=== PATIENT | male | born 1985 | race Caucasian/White ===

== ENCOUNTER 2016-07-07 10:17 | Emergency (ER) | payer OTHER ==
[2016-07-07 10:24] VITALS: BP 145/100
[2016-07-07] MEDS ORDERED: IBUPROFEN 800 MG TABLET PO ONE (10:25)
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
== END 2016-07-07 11:19 | disposition home or self-care (01) ==
LOC: ER 10:17
DX: S43.102A Unspecified dislocation of left acromioclavicular joint, initial encounter (principal); V28.4XXA Motorcycle driver injured in noncollision transport accident in traffic accident, initial encounter; Z88.0 Allergy status to penicillin; Z88.3 Allergy status to other anti-infective agents
CPT/HCPCS: 99283

== ENCOUNTER 2017-04-28 12:56 | Emergency (ER) | payer OTHER ==
[2017-04-28 13:05] VITALS: BP 147/85
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
[2017-04-28] MEDS ORDERED: KETOROLAC TROMETHAMINE 60 MG/2 ML SDV IM ONE (14:15)
[2017-04-28] MEDS ORDERED: DEXAMETHASONE SOD PHOS INJ 10 MG/1 ML VIAL IM ONE (14:15)
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
[2017-04-28] MEDS ORDERED: HYDROCODONE/ACETAMINOPHEN 5-325 MG 6 TAB/DSPK PO PRN (15:30)
== END 2017-04-28 15:50 | disposition home or self-care (01) ==
LOC: ER 12:56
DX: S16.1XXA Strain of muscle, fascia and tendon at neck level, initial encounter (principal); S80.01XA Contusion of right knee, initial encounter; S60.211A Contusion of right wrist, initial encounter; M25.531 Pain in right wrist; M54.2 Cervicalgia; V87.7XXA Person injured in collision between other specified motor vehicles (traffic), initial encounter
CPT/HCPCS: 99283; 96372; 73564; 73110; J1885; J1100

== ENCOUNTER 2018-04-12 09:10 | Emergency (ER) | payer OTHER ==
--- NOTE | 2018-04-12 10:05 | ER Document Report ---
ED Fall - General Chief Complaint: Fall Injury Stated Complaint: RIB PAIN Time Seen by Provider: 04/12/18 09:58 Notes: This is a 32-year-old male to the emergency department for evaluation of possible rib fracture. Patient states that he fell approximately 1 week ago. Had pain in the chest but continues to have pain in the right lateral and anterior chest wall. No difficulty breathing. Has been wearing a Timo wrap around his chest as it seems to help. Has taken some ibuprofen this morning. Not requesting pain medication. Wants to make sure that he does not have a collapsed lung or something else. Denies any other injuries. Denies any head trauma, hip pain, arm pain, face pain or any other issues at this time. Denies any abdominal pain. TRAVEL OUTSIDE OF THE [place] IN LAST 30 DAYS: No - HPI Occurred: Last week - Related data Allergies/Adverse Reactions: cefaclor [From Ceclor] Allergy (Verified 04/12/18 10:04) Penicillins Allergy (Verified 04/12/18 10:04) Past Medical History - General Information source: Patient - Social History Smoking Status: Never Smoker Chew tobacco use (# tins/day): Yes Frequency of alcohol use: Rare Drug Abuse: None Family History: Arthritis, CAD, COPD, CVA, DM, Hyperlipidemia, Hypertension. denies: Malignancy, Thyroid Disfunction Patient has suicidal ideation: No Patient has homicidal ideation: No Pulmonary Medical History: Reports: Hx Bronchitis, Hx Pneumonia Renal/ Medical History: Reports: Hx Epididymitis. Denies: Hx Peritoneal Dialysis Past Surgical History: Reports: Hx Tonsillectomy - Immunizations Hx Diphtheria, Pertussis, Tetanus Vaccination: Yes Review of Systems - Review of Systems Constitutional: denies: Fever, Malaise, Weakness EENT: denies: Blurred vision, Throat pain, Difficulty swallowing Cardiovascular: Chest pain. denies: Palpitations, Heart racing, Syncope, Dizziness Respiratory: Hurts to breathe. denies: Cough, Short of breath, Wheezing Gastrointestinal: denies: Abdominal pain, Diarrhea, Nausea, Blood streaked bowels Musculoskeletal: denies: Back pain, Joint pain, Muscle pain, Muscle stiffness, Deformity Skin: denies: Change in color, Dryness, Lesions, Lumps Hematologic/Lymphatic: denies: Anemia, Blood clots, Easy bleeding, Easy bruising Neurological/Psychological: denies: Confusion, Weakness, Numbness Physical Exam - Vital signs Vitals: Temp Pulse Resp BP Pulse Ox 98.1 F 88 16 159/96 H 96 04/12/18 09:15 04/12/18 09:15 04/12/18 09:15 04/12/18 09:15 04/12/18 09:15 Interpretation: Normal - General General appearance: Appears well, Alert - HEENT Head: Normocephalic, Atraumatic Eyes: Normal Pupils: PERRL Neck: Normal - Respiratory Respiratory status: No respiratory distress Chest status: Nontender Breath sounds: Normal Chest palpation: Normal Notes: he does have tenderness to palpation on the right anterior and right lateral chest wall - Cardiovascular Rhythm: Regular Heart sounds: Normal auscultation Murmur: No - Abdominal Inspection: Normal Distension: No distension Bowel sounds: Normal Tenderness: Nontender Organomegaly: No organomegaly - Extremities General upper extremity: Normal inspection, Nontender, Normal color, Normal ROM , Normal temperature General lower extremity: Normal inspection, Nontender, Normal color, Normal ROM , Normal temperature, Normal weight bearing. No: Mirian's sign - Neurological Neuro grossly intact: Yes Cognition: Normal Orientation: AAOx4 Juan Manuel Coma Scale Eye Opening: Spontaneous Juan Manuel Coma Scale Verbal: Oriented Juan Manuel Coma Scale Motor: Obeys Commands Juan Manuel Coma Scale Total: 15 Speech: Normal Motor strength normal: LUE, RUE, LLE, RLE Sensory: Normal Course - Vital Signs Vital signs: Temp Pulse Resp BP Pulse Ox 98.1 F 88 16 159/96 H 96 04/12/18 09:15 04/12/18 09:15 04/12/18 09:15 04/12/18 09:15 04/12/18 09:15 Discharge - Discharge Instructions: Rib Injuries and Fractures ([facility]) Prescriptions: Ibuprofen [Motrin 800 mg Tablet] 800 mg PO Q8H PRN 10 Days #30 tab PRN Reason: For Pain Scale 3-4 Tramadol HCl [Ultram 50 mg Tablet] 50 mg PO Q6H PRN 5 Days #20 tab PRN Reason: For Breakthrough Pain Referrals: [facility] [[facility]] - Follow up as needed
--- NOTE | 2018-04-12 11:23 | RADIOLOGY REPORT (SQ) ---
EXAM DESCRIPTION: RIBS RIGHT W/PA CHEST COMPLETED DATE/TIME: 04/12/2018 11:06 am REASON FOR STUDY: fall, rib and chest pain COMPARISON: None. TECHNIQUE: Frontal view of the chest and additional views of the right ribs acquired. NUMBER OF VIEWS: Three view. LIMITATIONS: None. FINDINGS: FRONTAL CXR: No pneumothorax. No pleural effusion. No atelectasis or infiltrates. RIBS: No displaced rib fractures. No lytic or blastic bony lesions. OTHER: No other significant finding. IMPRESSION: NO PNEUMOTHORAX. NO DISPLACED RIB FRACTURES. COMMENT: SITE OF TRAUMA/COMPLAINT MARKED/STAMP COMPLETED: YES. TECHNICAL DOCUMENTATION: JOB ID: [id number] [employer]- All Rights Reserved Reading location - IP/workstation name: [email or web address]
[2018-04-12 11:51] VITALS: BP 145/85
== END 2018-04-12 11:50 | disposition home or self-care (01) ==
LOC: ER 09:10
DX: S20.211A Contusion of right front wall of thorax, initial encounter (principal); W19.XXXA Unspecified fall, initial encounter; Z88.0 Allergy status to penicillin
CPT/HCPCS: 99283

== ENCOUNTER 2018-07-03 13:33 | Emergency (ER) | payer OTHER ==
[2018-07-03] MEDS ORDERED: TETRACAINE HCL 0.5% OPH SOLN 4 ML OS ONE (15:42)
--- NOTE | 2018-07-03 15:59 | ER Document Report ---
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 Patient states that he always uses protective eyewear when he Wells but whenever he is walking through the shop he does not always wear protective eyewear and is exposed to other people who are welding. Patient states that he went to sleep and woke up this morning with left eye pain, tearing and light sensitivity. Patient denies any foreign body in the eye. Patient denies any use of contact lenses. Patient states that he has had problems like this before with UV exposure. Associated Symptoms: Other - Left eye irritation Exacerbated by: Denies Relieved by: Denies Similar symptoms previously: Yes Recently seen / treated by doctor: No - ROS ROS below otherwise negative: Yes Systems Reviewed and Negative: Yes All other systems reviewed and negative - EENT EENT: REPORTS: Eye problems - GASTROINTESTINAL Gastrointestinal: DENIES: Nausea - DERM Skin Color: Normal Skin Problems: None Past Medical History - General Information source: Patient - Social History Smoking Status: Never Smoker Chew tobacco use (# tins/day): Yes Frequency of alcohol use: Occasional Drug Abuse: None 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 denies: Malignancy, Thyroid Disfunction Pulmonary Medical History: Reports: Hx Bronchitis, Hx Pneumonia Renal/ Medical History: Reports: Hx Epididymitis. Denies: Hx Peritoneal Dialysis Past Surgical History: Reports: Hx Tonsillectomy - Immunizations Hx Diphtheria, Pertussis, Tetanus Vaccination: Yes Vertical Provider Document - CONSTITUTIONAL Agree With Documented VS: Yes Exam Limitations: No Limitations General Appearance: WD/WN, No Apparent Distress - INFECTION CONTROL TRAVEL OUTSIDE OF THE [place] IN LAST 30 DAYS: No - HEENT HEENT: Atraumatic, Normocephalic Notes: Patient with scleral injection and tearing, positive photophobia. No corneal abrasion, ulcer or foreign body or dendrite. No fluorescein uptake to cornea. Patient with shallow abrasion to sclera at the 5 o'clock position. - NECK Neck: Normal Inspection, Supple. negative: Lymphadenopathy-Left, Lymphadenop athy-Right - RESPIRATORY Respiratory: Breath Sounds Normal, No Respiratory Distress - CARDIOVASCULAR Cardiovascular: Regular Rate, Regular Rhythm - BACK Back: Normal Inspection - MUSCULOSKELETAL/EXTREMETIES Musculoskeletal/Extremeties: MIKE RICHARDS - NEURO Level of Consciousness: Awake, Alert, Appropriate Motor/Sensory: No Motor Deficit - DERM Integumentary: Warm, Dry, No Rash Course - Re-evaluation Re-evalutation: 07/03/18 15:55 Patient with what appears to likely be UV keratitis. Patient with incidental scleral abrasion unlikely from rubbing his eyes. Patient encouraged not to rub the eyes and advised that he should wear protective eye wear when he is walking through his place of employment. - Vital Signs Vital signs: Temp Pulse Resp BP Pulse Ox 99.0 F 92 16 156/116 H 99 07/03/18 14:21 07/03/18 14:21 07/03/18 14:21 07/03/18 14:21 07/03/18 14:21 Discharge - Discharge Clinical Impression: UV keratitis Qualifiers: Laterality: left Qualified Code(s): H16.132 - Photokeratitis, left eye Abrasion of sclera of left eye Qualifiers: Encounter type: initial encounter Qualified Code(s): S05.8X2A - Other injuries of left eye and orbit, initial encounter Condition: Stable Disposition: HOME, SELF-CARE Additional Instructions: Return immediately for any new or worsening symptoms Followup with your primary care provider, call tomorrow to make a followup appointment Wear protective eyewear while working or walking through your work environment Follow-up with mandrel maker for recheck, call today to make a follow-up appoi ntment Prescriptions: Erythromycin Base [E-Mycin 0.5% Oph Ointment 3.5 gm] 1 applic LFT_EYE QID #1 tube Hydrocodone/Acetaminophen [[place] 5-325 mg Tablet] 1 tab PO Q6 PRN #10 tablet PRN Reason: Forms: Return to Work Referrals: [facility] [[facility]] - Follow up as needed [facility] [Provider Group] - Follow up tomorrow
[2018-07-03 16:34] VITALS: BP 150/110
== END 2018-07-03 16:34 | disposition home or self-care (01) ==
LOC: ER 13:33
DX: H16.132 Photokeratitis, left eye (principal); S05.8X2A Other injuries of left eye and orbit, initial encounter; X58.XXXA Exposure to other specified factors, initial encounter; Y99.0 Civilian activity done for income or pay
CPT/HCPCS: 99283; J3490

== ENCOUNTER 2019-12-13 21:16 | Emergency (ER) | payer OTHER ==
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
--- NOTE | 2019-12-13 22:23 | RADIOLOGY REPORT (SQ) ---
3 VIEWS OF LEFT HAND HISTORY: Fall on oyster rock . COMPARISON: None. FINDINGS: No acute fracture or dislocation is seen. The joint spaces are preserved. The soft tissues are swollen. There are tiny 1 mm densities scattered in the soft tissues of the thumb. IMPRESSION: 1. Tiny 1 mm densities scattered in the soft tissues of the thumb. 2. No acute fracture.
--- NOTE | 2019-12-13 22:29 | RADIOLOGY REPORT (SQ) ---
3 VIEWS OF LEFT FOOT HISTORY: Stepped on oyster rock. COMPARISON: None. FINDINGS: There is a subacute healing fracture of the fifth proximal phalanx with surrounding bridging callus formation. No additional fracture is seen. There is mild soft tissue swelling with a nonspecific linear density in the soft tissues of the fifth metatarsal measuring 6 mm. IMPRESSION: 1. Subacute healing fracture of the fifth proximal phalanx. 2. 6 mm linear density in the soft tissues of the fifth metatarsal, which may represent foreign body.
[2019-12-14] MEDS ORDERED: LEVOFLOXACIN 750 MG TABLET PO ONE (00:21)
[2019-12-14] MEDS ORDERED: DIPH/PERTUSS(ACELL)/TETANUS VAC/PF 0.5 ML SYR (>=10YO) IM ONE (00:21)
[2019-12-14] MEDS ORDERED: HYDROCODONE/ACETAMINOPHEN 5-325 MG (6 TAB/ER DISP) PO PRN (00:28)
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
[2019-12-14 01:33] VITALS: BP 169/102
== END 2019-12-14 01:33 | disposition home or self-care (01) ==
LOC: ER 21:16
DX: S61.012A Laceration without foreign body of left thumb without damage to nail, initial encounter (principal); S91.312A Laceration without foreign body, left foot, initial encounter; W18.31XA Fall on same level due to stepping on an object, initial encounter; Y92.832 Beach as the place of occurrence of the external cause; F17.210 Nicotine dependence, cigarettes, uncomplicated; Z23 Encounter for immunization
CPT/HCPCS: 90471; 90715; 99283